=== PATIENT | female | born 1955 | race Asian ===

== ENCOUNTER 2020-07-06 10:37 | Emergency (ER) | payer OTHER ==
[~2020-07-06] VITALS: Ht 165.1 cm; Wt 59.0 kg
[~2020-07-06 10:37] MED LIST: ATOR20TA37 PO; ATOR40TA78 PO; LISI-170 PO
--- NOTE | 2020-07-06 10:50 | NUR ---
PATIENT ARRIVES WITH PAIN SHE DESCRIBES "WHERE MY BRA IS HERE" AND POINTS TO UNDER LEFT ARMPIT. SHE STATES SHE HAS BEEN NERVOUS. SHE REPORTS PAIN IS FOR ONE WEEK
[2020-07-06] MEDS ORDERED: LISI5TAB7 PO (10:56)
[2020-07-06] MEDS ORDERED: MAALOX/HYOSCYAMINE/LIDOCAINE 45 ML BTL PO ONE (11:00)
[2020-07-06] MEDS ORDERED: MAALOX/HYOSCYAMINE/LIDOCAINE 45 ML BTL ONE (11:02)
--- NOTE | 2020-07-06 11:22 | NUR ---
patient left to xray
[2020-07-06 11:38] LABS: BASOPHILS # (AUTO) 0.05 x10^3/uL (0-0.1); BASOPHILS % (AUTO) 1 % (0-1); EOSINOPHILS # (AUTO) 0.02 x10^3/uL (0-0.4); EOSINOPHILS % (AUTO) 0 % (1-7); LYMPHOCYTES # (AUTO) 0.91 x10^3/uL (1-3.4); LYMPHOCYTES % (AUTO) 18 % (22-44); MD NO; MEAN CORPUSCULAR HEMOGLOBIN 27.7 pg (27.0-34.8); MEAN CORPUSCULAR HGB CONC 32.4 g/dL (32.4-35.8); MEAN PLATELET VOLUME 6.9 fL (7.4-10.4); MONOCYTES # (AUTO) 0.26 x10^3/uL (0.2-0.8); MONOCYTES % (AUTO) 5 % (2-9); NEUTROPHILS # (AUTO) 3.88 x10^3/uL (1.8-6.8); NEUTROPHILS % (AUTO) 76 % (42-75); PLATELET COUNT 278 x10^3/uL (130-400); RED BLOOD COUNT 4.25 x10^6/uL (3.82-5.3); RED CELL DISTRIBUTION WIDTH 12.9 % (9.6-15.2)
[2020-07-06 11:47] LABS: ALANINE AMINOTRANSFERASE 20 U/L (12-78); ALBUMIN 3.6 g/dL (3.4-5.0); ANION GAP 9 mmol/L (5-15); CALCIUM 8.4 mg/dL (8.5-10.1); CHLORIDE 94 mmol/L (98-107); CREATININE 1.54 mg/dL (0.55-1.02)
[2020-07-06 11:51] LABS: ALKALINE PHOSPHATASE 76 U/L (45-117); BILIRUBIN,TOTAL 0.4 mg/dL (0.2-1.0); TOTAL PROTEIN 7.2 g/dL (6.4-8.2); TROPONIN I < 0.015 ng/mL (0.000-0.045)
[2020-07-06 12:42] VITALS: BP 126/78
== END 2020-07-06 12:53 | disposition home or self-care (01) ==
LOC: ED 12:40
DX: R07.89 Other chest pain (principal); E87.1 Hypo-osmolality and hyponatremia
CPT/HCPCS: 36415; 71045; 72072; 80053; 83690; 84484; 85025; 93005; 99285

== ENCOUNTER 2020-08-05 19:39 | Emergency (ER) | payer SELFPAY ==
[~2020-08-05 19:39] MED LIST changes: +LISI5TAB7 PO
[2020-08-05 19:52] VITALS: BP 137/98
[2020-08-05] MEDS ORDERED: MAALOX/HYOSCYAMINE/LIDOCAINE 45 ML BTL PO ONE (21:00)
--- NOTE | 2020-08-05 21:08 | NUR ---
PT STATES SHE DOES NOT WANT TO DO A URINE SAMPLE. SHE SAYS SHE FEELS BETTER AND SHE WANTS TO GO HOME. I HAD HER GET DRESSED AND WHEN I WENT TO WALK HER OUT SHE SAID SHE WANTS HER PERSCRIPTIONS REFILLED. I EXPLAINED THE PROCESS OF OUR WORK FLOW HERE AND SHE HAS TO WAIT FOR THE RESULTS FROM HER LABS AND FOR THE DR TO COME SEE HER AGAIN IN ORDER TO GET HER RX REFILLED. PT STATES SHE WILL ONLY WAIT 1 HOUR BEFORE SHE LEAVES. I TOLD HER THAT WE WORK ON OUR TIME AND NOT ON HERS.
[2020-08-05 21:09] LABS: BASOPHILS % (AUTO) 1 % (0-1); EOSINOPHILS % (AUTO) 2 % (1-7); LYMPHOCYTES % (AUTO) 28 % (22-44); MEAN CORPUSCULAR HEMOGLOBIN 27.4 pg (27.0-34.8); MEAN CORPUSCULAR HGB CONC 32.6 g/dL (32.4-35.8); MEAN PLATELET VOLUME 6.8 fL (7.4-10.4); MONOCYTES % (AUTO) 8 % (2-9); NEUTROPHILS % (AUTO) 61 % (42-75); PLATELET COUNT 305 x10^3/uL (130-400); RED BLOOD COUNT 4.22 x10^6/uL (3.82-5.3); RED CELL DISTRIBUTION WIDTH 13.3 % (9.6-15.2)
[2020-08-05 21:11] LABS: MD NO
[2020-08-05 21:14] LABS: ALBUMIN 3.8 g/dL (3.4-5.0); ANION GAP 7 mmol/L (5-15); CHLORIDE 93 mmol/L (98-107)
--- NOTE | 2020-08-05 21:14 | NUR ---
PT AMBULATORY TO THE BATHROOM FOR URINE SAMPLE NOW
[2020-08-05 21:19] LABS: ALANINE AMINOTRANSFERASE 19 U/L (12-78); ALKALINE PHOSPHATASE 93 U/L (45-117); BILIRUBIN,TOTAL 0.5 mg/dL (0.2-1.0); CREATININE 1.34 mg/dL (0.55-1.02); TOTAL PROTEIN 7.1 g/dL (6.4-8.2); TROPONIN I < 0.015 ng/mL (0.000-0.045)
[2020-08-05 21:44] LABS: MICROSCOPIC INDICATED
--- NOTE | 2020-08-05 21:44 | NUR ---
PT DOES NOT WANT TO WAIT FOR RESULTS BEFORE DISCHARGE. PT PROVIDED DISCHARGE PAPERWORK AND ESCORTED TO DISCHARGE DESK.
== END 2020-08-05 21:46 | disposition home or self-care (01) ==
LOC: ED 21:21
DX: S29.012A Strain of muscle and tendon of back wall of thorax, initial encounter (principal); R10.12 Left upper quadrant pain; R94.31 Abnormal electrocardiogram [ECG] [EKG]; Z76.0 Encounter for issue of repeat prescription; I10 Essential (primary) hypertension; Z86.73 Personal history of transient ischemic attack (TIA), and cerebral infarction without residual deficits; X58.XXXA Exposure to other specified factors, initial encounter; Y93.89 Activity, other specified; Y92.89 Other specified places as the place of occurrence of the external cause; Y99.8 Other external cause status
CPT/HCPCS: 36415; 71045; 80053; 81001; 83690; 84484; 85025; 87077; 87086; 93005; 99285